=== PATIENT | male | born 1935 | race American Indian/Alaskan Native ===

== ENCOUNTER 2018-03-15 10:40 | Inpatient (IN) | payer OTHER ==
[~2018-03-15] VITALS: Ht 185.4 cm; Wt 80.2 kg
[2018-03-15] MEDS ORDERED: TOPROL XL25 MG PO (10:55)
[2018-03-15] MEDS ORDERED: ASPIR LOW81 MG PO (10:56)
[2018-03-15] MEDS ORDERED: KEPPRA500 MG PO (10:56)
[2018-03-15] MEDS ORDERED: TEGRETOL200 MG PO (10:56)
[2018-03-15 11:03] LABS: BASOPHIL % 0.5 % (0-2); PLATELET COUNT 135 x10^3mcL (130-400)
[2018-03-15 11:09] LABS: RED CELL DISTRIBUTION WIDTH 15.2 % (11.5-14.5)
[2018-03-15 11:37] LABS: CALCIUM 7.7 mg/dL (8.5-10.1); CHLORIDE SERUM 103 mmol/L (98-107); CREATININE SERUM 1.2 mg/dL (0.7-1.3); GLUCOSE SERUM 92 mg/dL (74-106); POTASSIUM SERUM 5.1 mmol/L (3.5-5.1); SODIUM SERUM 136 mmol/L (136-145)
[2018-03-15 11:42] LABS: ALBUMIN 3.2 g/dL (3.4-5.0); ALKALINE PHOSPHATASE 82 U/L (46-116); ALT/SGPT 29 U/L (16-63); AST/SGOT 29 U/L (15-37); BILIRUBIN TOTAL 0.3 mg/dL (0.20-1.00); TOTAL PROTEIN, SERUM 6.3 g/dL (6.4-8.2)
[2018-03-15 12:03] LABS: FREE T4 0.8 ng/dL (0.76-1.46); FREE THYROXINE INDEX 1.9 ug/dL (1.4-4.5)
[2018-03-15 12:31] LABS: AMPHETAMINE QUAL UR NONE DETECTED (See below)
[2018-03-15 12:45] LABS: UA SPECIFIC GRAVITY 1.015 (1.005-1.035)
[2018-03-15 12:46] LABS: microscopic required? YES; urine erythrocyte NEGATIVE (NEGATIVE)
[2018-03-15 13:51] VITALS: BP 85/63
[2018-03-15 14:46] LABS: CHOLESTEROL/HDL RATIO 3.5; MAGNESIUM 2.1 mg/dL (1.8-2.4)
[2018-03-15 16:10] VITALS: BP 106/52
[2018-03-15 20:44] VITALS: BP 129/59
[2018-03-16 01:32] VITALS: BP 124/71
[2018-03-16 06:03] LABS: CALCIUM 8.3 mg/dL (8.5-10.1); CARBON DIOXIDE 25.5 mmol/L (21-32); CHLORIDE SERUM 104 mmol/L (98-107); CREATININE SERUM 1.1 mg/dL (0.7-1.3); GLUCOSE SERUM 89 mg/dL (74-106); SODIUM SERUM 133 mmol/L (136-145)
[2018-03-16 06:05] LABS: POTASSIUM SERUM 5.7 mmol/L (3.5-5.1)
[2018-03-16 07:39] LABS: BASOPHIL % 0.3 % (0-2); PLATELET COUNT 161 x10^3mcL (130-400)
[2018-03-16 07:41] VITALS: BP 152/88
[2018-03-16 07:42] LABS: RED CELL DISTRIBUTION WIDTH 15.6 % (11.5-14.5)
[2018-03-16 08:02] LABS: ALBUMIN 3.7 g/dL (3.4-5.0); BILIRUBIN DIRECT 0.12 mg/dL (0.0-0.2); BILIRUBIN TOTAL 0.4 mg/dL (0.20-1.00); TOTAL PROTEIN, SERUM 7.6 g/dL (6.4-8.2)
[2018-03-16 11:51] VITALS: BP 152/75
[2018-03-16 15:07] VITALS: BP 144/59
[2018-03-16 20:58] VITALS: BP 138/76
[2018-03-16 23:43] VITALS: BP 133/60
[2018-03-17 03:59] VITALS: BP 132/74
[2018-03-17 06:58] LABS: BASOPHIL % 0.5 % (0-2); PLATELET COUNT 138 x10^3mcL (130-400)
[2018-03-17 07:02] LABS: CALCIUM 8.4 mg/dL (8.5-10.1); CARBON DIOXIDE 27.5 mmol/L (21-32); CHLORIDE SERUM 105 mmol/L (98-107); CREATININE SERUM 0.9 mg/dL (0.7-1.3); GLUCOSE SERUM 82 mg/dL (74-106); POTASSIUM SERUM 4.3 mmol/L (3.5-5.1); RED CELL DISTRIBUTION WIDTH 15.4 % (11.5-14.5); SODIUM SERUM 138 mmol/L (136-145)
[2018-03-17 07:13] VITALS: BP 144/82
[2018-03-17 08:26] VITALS: Ht 185.4 cm; Wt 80.2 kg
[2018-03-17 12:24] VITALS: BP 103/59
[2018-03-17 16:24] VITALS: BP 98/53
[2018-03-17 21:48] VITALS: BP 103/51
[2018-03-18 05:45] VITALS: BP 161/91
[2018-03-18 09:04] VITALS: BP 142/83
[2018-03-18 13:18] VITALS: BP 140/74
[2018-03-18 17:35] VITALS: BP 149/82
[2018-03-18 20:21] VITALS: BP 138/68
[2018-03-19 06:07] VITALS: BP 112/65
[2018-03-19 08:54] VITALS: BP 123/75
[2018-03-19 10:12] VITALS: BP 123/75
[2018-03-19 12:30] VITALS: BP 130/76
== END 2018-03-19 13:10 | disposition other institution (70) | DRG 309 ==
LOC: ED 10:40 → DU 12:05 → EDBEDREQ 12:10 → IC 13:20 → DU 13:23 → IC 16:49 → DU 03-17 09:47
PROVIDERS: Emergency Medicine; Internal Medicine
DX: I47.1 Supraventricular tachycardia (principal); N39.0 Urinary tract infection, site not specified; I49.5 Sick sinus syndrome; E86.0 Dehydration; E83.51 Hypocalcemia; D64.9 Anemia, unspecified; I25.10 Atherosclerotic heart disease of native coronary artery without angina pectoris; E87.5 Hyperkalemia; I10 Essential (primary) hypertension; G40.909 Epilepsy, unspecified, not intractable, without status epilepticus
CPT/HCPCS: 83880; 84439; J0461; J1160; J1956; J3490; J7030; Q0092